=== PATIENT | female | born 1995 ===

== ENCOUNTER 2023-12-12 09:55 | Emergency (ER) | payer OTHER, SELFPAY ==
[2023-12-12] VITALS (7 sets, daily range): BP systolic 89–108; BP diastolic 48–71; BMI 20.9
[2023-12-12 11:25] LABS: % Basophils 0.2 % (0-2); % Eosinophils 0.5 % (0-6); % Immature Granulocytes 0.3 % (0-0.5); % Lymphocytes 10.9 % (20.5-51.1); % Monocytes 3.5 % (1.7-9.3); % Neutrophils 84.6 % (42.2-75.2); Absolute Lymphocytes 0.7 10^3/uL (1.2-3.4); Absolute Monocytes 0.2 10^3/uL (0.1-0.6); Absolute Neutrophils 5.5 10^3/uL (1.4-6.5); Hemoglobin 12.5 g/dL (12.0-16.0); Mean Corp Hgb Conc. 33.8 g/dL (33.0-37.0); Mean Corpuscular Hgb 28.3 pg (27.0-31.0); Mean Corpuscular Volume 83.9 fL (81.0-99.0); Mean Platelet Volume 9.4 fL (7.4-10.4); Nucleated Red Blood Cells % 0 %; Platelet Count 274 10^3/uL (130-400); Red Blood Cell Count 4.41 10^6/uL (4.20-5.40); White Blood Cell Count 6.5 10^3/uL (4.8-10.8)
--- NOTE | 2023-12-12 11:29 | ED.GENMED ---
History of Present Illness
General
Chief Complaint: Abdominal Symptoms
Source: patient
Exam Limitations: none
Time Seen by Provider: 12/12/23 11:24
History of Present Illness
History of Present Illness:
28-year-old female presents with onset of nausea vomiting diarrhea starting last evening. Her is sick with similar symptoms. She notes mild abdominal discomfort. She denies chest pain or shortness of breath. No blood in the vomit or the
stool. She is healthy otherwise. No other complaints at this time
Past History
Past History
ED Past Medical History: Other (Hyperemesis gravidarum/gastritis, anemia)
ED Past Surgical History:
Social History
Tobacco: Non-smoker
Alcohol: None
Personal:
Living: with family
Employment: Employed (Self-employed)
Family History
Family History: Other (Noncontributory)
Phy Exam
Physical Exam
Physical Exam:
General: Well-appearing female no acute respiratory distress
HEENT: Normocephalic atraumatic
Heart: Regular rate and rhythm no murmurs
Lungs: Clear no wheeze or rales
Abdomen: Soft nontender nondistended no guarding rebound normal bowel sounds
Extremities: No cyanosis or edema
Skin: Warm no rash
Course
Orders/Labs/Results
Orders:
Orders
12/12/23 10:56
IV Insert/Care/Rem.- Treatment PRN
12/12/23 10:57
Test Result ONCE
12/12/23 11:13
Complete Blood Count/With Diff Urgent
Comprehensive Metabolic Panel Urgent
HCG, Serum Qualitative Screen Urgent
Comment: Notify provider if positive test present
Lipase Urgent
Urinalysis Reflex To Culture Urgent
Date Specimen was Collected: 12/12/23
Time Specimen was Collected: 11:03
12/12/23 11:29
0.9% Sodium Chloride 1000 ml [Nss] 1,000 ml IV BOLUS
Ondansetron Injectable [Zofran] 4 mg IV NOW STA
Abnormal Lab Results
12/12/23
11:13
Absolute Lymphs (auto) 0.7 L 10^3/uL
(1.2-3.4)
Neutrophils % 84.6 H %
(42.2-75.2)
Lymphocytes % 10.9 L %
(20.5-51.1)
Glucose 101 H mg/dl
(70-99)
12/12/23 11:13
12/12/23 11:13
Vital Signs
Initial and Last Documented VS:
Initial Vital Signs
Temp Pulse Resp BP Pulse Ox
98.3 F 102 20 107/68 99
12/12/23 10:02 12/12/23 10:02 12/12/23 10:02 12/12/23 10:02 12/12/23 10:02
Last Documented Vital Signs
Temp Pulse Resp BP Pulse Ox
98.3 F 102 20 104/71 100
12/12/23 10:02 12/12/23 10:02 12/12/23 10:02 12/12/23 11:05 12/12/23 11:45
MDM/Problems Addressed
Differential Diagnosis Includes:
Patient with nausea vomiting and diarrhea. Abdomen exam is benign. Considered CT however not indicated secondary to benign exam. Will check labs hydrate and give Zofran. Vital signs are stable.
*Critical Care Note
Total Time (30-74mins, 75-104mins- exclusive of procedures): Not Applicable
Update Note
Update Note:
Patient feeling much better. Tolerating oral fluids. Stable for discharge suspect underlying viral illness
ED Attending Note
-
Portions of this chart may have been created with voice recognition software.� Occasional wrong word or��sound alike� substitutions may have occurred due to the inherent limitations of voice recognition software.
Discharge Plan
Departure
Patient Disposition: Home (Routine Discharge)
Date of Disposition: 12/12/23
Time of Disposition: 14:38
Patient with high blood pressure during this ER visit?: No
Discharge Problem:
Vomiting
Instructions: Nausea and Vomiting, Adult (DC)
Prescriptions:
New
ondansetron 4 mg tablet,disintegrating
4 mg PO Q8H PRN (Reason: nausea and vomiting) Qty: 10 0RF
No Action
ondansetron 4 mg tablet,disintegrating
4 mg PO TIDPRN PRN (Reason: nausea and vomiting) Qty: 20 0RF
Referrals:
Shailesh Kaba MD [Family Provider] -
Activity Restrictions/Additional Instructions:
Drink plenty clear liquids. Start with a bland diet. Return if worse otherwise follow-up with family doctor. Use Zofran if needed for nausea
Interventions
Interventions:
*Risk Screen - Suicide Last Done: 12/12/23 10:06
*General Assessment Last Done: 12/12/23 10:07
*Neglect/Abuse Screening Last Done: 12/12/23 10:06
ED- Fall Risk Assessment Last Done: 12/12/23 11:10
*ED COVID-19 Vaccine History Last Done: 12/12/23 11:10
TM-Khdyag-Meidpviygh Assessment Last Done: 12/12/23 11:10
Discharge Date and Time
Print Language: CAMBODIAN
[2023-12-12 11:42] LABS: ALT (SGPT) 33 U/L (0-35); AST (SGOT) 27 U/L (14-36); Albumin 4.4 g/dl (3.5-5.0); Alkaline Phosphatase 57 U/L (38-126); Blood Urea Nitrogen 15 mg/dl (7-17); Calcium 8.9 mg/dl (8.4-10.2); Carbon Dioxide 24 mmol/L (22-30); Chloride 104 mmol/L (98-107); Glucose 101 mg/dl (70-99); HCG, Serum Qualitative Screen Negative; Lipase 158 U/L (23-300); Potassium 4.6 mmol/L (3.5-5.1); Sodium 139 mmol/L (135-145); Total Bilirubin 0.7 mg/dl (0.2-1.3); eGFR > 60.00
[2023-12-12 11:46] LABS: Urine Albumin Trace (Neg - Trace); Urine Bilirubin Negative (Negative); Urine Character Clear (Clear); Urine Color Yellow; Urine Glucose Negative (Negative); Urine Ketone Negative (Negative); Urine Leukocyte Negative (Negative); Urine Nitrite Negative (Negative); Urine Occult Blood Negative (Negative); Urine Specific Gravity 1.015 (<1.030); Urine Urobilinogen Negative (Neg - 1+)
[2023-12-12] MEDS: ZOFRAN 4 MG IV (11:49)
[2023-12-12] MEDS: NSS 1000 IV (11:51)
--- NOTE | 2023-12-12 15:42 | EDRN ---
Reviewed discharge instructions with patient. Verbalized understanding. Ambulated with steady gait to the lobby.
== END 2023-12-12 15:15 | disposition home or self-care (01) ==
LOC: EMR 09:55
PROVIDERS: Student in an Organized Health Care Education/Training Program; EMERGENCY PHYSICIAN Student in an Organized Health Care Education/Training Program; FAMILY PHYSICIAN Internal Medicine
DX: R11.2 Nausea with vomiting, unspecified (principal); R19.7 Diarrhea, unspecified; Z87.19 Personal history of other diseases of the digestive system
CPT/HCPCS: 99284; 96374; 96361; 80053; 81003; 83690; 84703; 85025